=== PATIENT | female | born 1980 | race Caucasian/White ===

== ENCOUNTER 2017-03-05 21:31 | Emergency (ER) | payer SELFPAY ==
[~2017-03-05] VITALS: Ht 165.1 cm; Wt 87.0 kg
[2017-03-05 21:36] VITALS: Ht 165.1 cm; Wt 87.0 kg
--- NOTE | 2017-03-06 00:19 | ERD ---
ER Documentation Chief Complaint Chief Complaint Headache HPI The patient is a 36-year-old female, presenting to the ER because of left-sided headache, right ear pain, sore throat, intermittent cough for the last 2 days. She denies facial pain, neck pain, chest pain, dyspnea, abdominal pain, vomiting , dysuria, diarrhea. She does not smoke smokes and drinks socially, has increased stress in her life at work Past medical history: None Past surgical history: Ectopic ROS All systems reviewed and are negative except as per history of present illness. Medications Home Meds Active Scripts Dextromethorphan Hb-Promethazine Hcl* (Promethazine DM* Syrup) 473 Ml Syrup, 10 ML PO Q6 Y for COUGH, #120 ML Prov:SALLY BERMUDEZ MD 03/06/17 Ibuprofen* (Motrin*) 600 Mg Tab, 600 MG PO Q6H Y for PAIN AND OR ELEVATED TEMP, #20 TAB Prov:SALLY BERMUDEZ MD 03/06/17 Dextromethorphan Hb-Promethazine Hcl* (Promethazine DM* Syrup) 473 Ml Syrup, 10 ML PO Q6 Y for COUGH, #120 ML Prov:SALLY BERMUDEZ MD 03/06/17 Ibuprofen* (Motrin*) 600 Mg Tab, 600 MG PO Q6H Y for PAIN, #20 TAB Prov:SALLY BERMUDEZ MD 03/06/17 Physical Exam Vitals Vital Signs Date Time Temp Pulse Resp B/P Pulse Ox O2 Delivery O2 Flow Rate FiO2 03/06/17 01:30 98.8 03/05/17 21:36 99.3 86 20 148/83 97 Physical Exam Const: No acute distress. Head: Atraumatic. Eyes: Normal Conjunctiva. ENT: Normal External Ears, Nose and Mouth.Bilateral tympanic membranes and oropharynx are within normal limits, no facial tendons sinus tenderness Neck: Full range of motion. No meningismus. Resp: Clear to auscultation bilaterally. Cardio: Regular rate and rhythm. Abd: Soft, non distended, normal bowel sounds, non tender. Skin: No petechiae or rashes. Back: No midline or flank tenderness. Ext: No cyanosis, or edema. Neur: Awake and alert. No focal deficit Psych: Normal Mood and Affect. Procedures/MDM MEDICAL MAKING DECISION: The patient is a 36-year-old female, presenting with acute viral syndrome. She is stable for outpatient follow-up. The differential diagnoses considered include but are not limited to sinusitis, sinus headache, subarachnoid hemorrhage, occult trauma, CVA, meningitis, encephalitis, hypertension, tension, migraine, cluster, narcotic withdrawal, cervical spine disease. Departure Diagnosis: Primary Impression: Viral syndrome Condition: Good Comments She was discharged with Motrin and Phenergan DM I discussed the findings with the patient. I advised the patient to follow-up with the primary physician in about 1-2 days, sooner if needed and return if any concern. The patient's blood pressure was elevated (>120/80) but appears stable without evidence of hypertension emergency or urgency. The patient was counseled about the risks of hypertension and urged to pursue outpatient monitoring and therapy within a week with their primary care physician. SALLY BERMUDEZ MD Mar 06, 2017 00:19
[2017-03-06] MEDS ORDERED: D-ME473S2 PO ×2 (01:13→01:30)
[2017-03-06] MEDS ORDERED: IBUP-1542 PO ×2 (01:13→01:30)
[2017-03-06 01:30] VITALS: TEMP 98.8
== END 2017-03-06 01:30 | disposition home or self-care (01) ==
LOC: E/R 21:31
DX: B34.9 Viral infection, unspecified (principal)
CPT/HCPCS: 99283